=== PATIENT | male | born 1995 | race Caucasian/White ===

== ENCOUNTER 2020-06-02 15:14 | Emergency (ER) | payer OTHER, SELFPAY ==
[2020-06-02 15:18] VITALS: BP 151/99; PULSE 122; RESP 17; TEMP 37.1; O2SAT 97; BMI 29.7
--- NOTE | 2020-06-02 15:25 | ED.DCSUM_ITS ---
History of Present Illness Chief Complaint: Cold Sx Informant: Patient Onset: Days - Couple of days ago Context: Sudden Onset Timing: Continuous Quality: Complains of pressure and discomfort Location: Right side of his head and face Current Severity: Mild Maximum Severity: Moderate Worsened by: Nothing specific Relieved by: Nothing Associated Symptoms: History of allergic rhinitis/allergies Narrative: Patient is 24-year-old male presents with the pressure discomfort right side of his head and face. He has history of allergies. He recently flew in from [place]. He contacted his insurance carrier who recommend he come to the emergency room since he was not able to be seen at an urgent care. He denies fever, chills night sweats. He denies double vision, blurred vision or photophobia. He denies neck pain or neck stiffness. He does report right ear pain. He denies cough or shortness of breath. He has no other complaints. Prior similar symptoms: Yes Recent Illness/Hospitalization: No - Past Medical History (1) Environmental allergies Status: Acute Past Medical History - Allergies and Home Meds Allergies/Adverse Reactions: Allergies amoxicillin [Amoxicillin] Allergy (Verified 06/02/20 15:17) Hives Primary Care Physician: Babatunde Weston MD [Primary Care Provider] - Prior records reviewed: No Past Medical History: None Surgical History: noncontributory Lives: Spouse/ Significant Other Smoking Status: Never smoker Alcohol: Rare Drugs: None Review of Systems General: Denies: Chills, Fever, Malaise, Subjective, Sweats Eyes: Denies: Visual changes - bilaterally, Blurred Vision - bilaterally, Diplopia ENT: Reports: Right ear pain, Rhinorrhea. Denies: Sore throat Cardiovascular: Denies: Chest pain Respiratory: Denies: Dyspnea, Cough, Dyspnea on exertion Gastrointestinal: Denies: Nausea, Vomiting Musculoskeletal: Denies: Neck pain Neurological: Reports: Headache. Denies: Weakness, Parasthesia Allergy: Denies: Uticaria, Swelling of the mouth Physical Exam Vital Signs/Narrative: Vital Signs Temp Pulse Resp BP Pulse Ox 06/02/20 15:18 98.8 F 122 H 17 151/99 H 97 Inital Vital Signs reviewed: Yes General: Well nourished, Well developed, No Acute Distress Head: Normocephalic, Atraumatic Eyes: Perrl, EOMI. Negative for: Pale conjunctiva, Scleral icterus ENT: Moist mucous membranes, TM's clear - There is evidence of serous otitis on the right. Landmarks are distorted., Nasal congestion. Negative for: No rhinorrhea Neck: Supple, Nontender, No lymphadenopathy, No JVD Cardiovascular: Regular rhythm, No murmurs, Normal S1, Normal S2, Tachycardia Respiratory: No distress, CTA bilaterally Skin: Normal color, No rash Neurological: Alert, Oriented x3, Cranial nerves II-XII grossly intact Psychological: Normal affect Diagnostic/Tx/Re-eval - Medical Decision Making Diagnosis includes allergic rhinitis, sinusitis allergy versus viral, eustachian tube dysfunction, otitis media infectious versus serous. Patient's noted to have serous otitis. He was instructed to take decongestant. ED Disposition - Plan for ED Patient: Disposition: Home or Assisted Living Diagnosis: Right acute serous otitis media Instructions: ED Earache Without Infection (Adult) Referrals: Babatunde Weston MD [Primary Care Provider] - As Needed
== END 2020-06-02 15:46 | disposition home or self-care (01) ==
PROVIDERS: Emergency Provider Emergency Medicine
DX: H65.01 Acute serous otitis media, right ear (principal)
CPT/HCPCS: 99282